=== PATIENT | male | born 1995 | race Caucasian/White ===

== ENCOUNTER 2021-05-05 10:36 | Emergency (ER) | payer OTHER, SELFPAY ==
--- NOTE | ~2021-05-05 | XR_ITS ---
EXAMINATION: XR chest 2V DATE: 05/05/2021 11:41 INDICATION: One week of cough TECHNIQUE: PA and lateral views of the chest were obtained. COMPARISON: None FINDINGS: The lungs are clear with no focal airspace opacities, pulmonary edema, pleural effusion or pneumothor ax. The cardiomediastinal silhouette is normal. Visualized bones and soft tissues are unremarkable. IMPRESSION: 1. Normal chest radiograph. Reviewed, dictated and finalized at location A. [employer] IMPRESSION: 1. Normal chest radiograph.
[2021-05-05 10:50] VITALS: BP 140/86; PULSE 83; RESP 18; TEMP 36.7; O2SAT 100
--- NOTE | 2021-05-05 11:30 | ED.GENADULT ---
HPI - General Adult General Chief complaint: Upper Respiratory Infection Stated complaint: cough Source: patient Mode of arrival: ambulatory Limitations: no limitations History of Present Illness HPI narrative: Patient presents for evaluation of respiratory symptoms for the last 6 days. He initially had a sore throat and fever. Fever has resolved, although sore throat has persisted. Reports sinus congestion, productive cough of yellow sputum, bilateral ear pain. Denies any nausea, vomiting, diarrhea, body aches. He has been taking Sudafed and DayQuil which seemed to help for about 4 hours. He is recurrence of his symptoms as the medication wears off. No recent sick contacts to his knowledge. He did have COVID in December 2019. He has received both doses of COVID vaccination as well as his booster. He does not smoke. No additional complaints or concerns. Related Data Home Medications Medication Instructions Recorded Confirmed No Home Medications 05/05/21 05/05/21 Allergies Allergy/AdvReac Type Severity Reaction Status Date / Time No Known Allergies Allergy Unverified 10/18/11 17:48 Review of Systems Review of Systems: CONSTITUTIONAL: Reports recent fever, none currently. Denies chills, or sweats. EYES: Denies visual changes, redness, or discharge. ENT: Reports nasal congestion, sore throat and bilateral otalgia CARDIOVASCULAR: Denies chest pain, palpitations, or edema. RESPIRATORY: Reports productive cough. Denies SOB GASTROINTESTINAL: Denies abdominal pain, nausea, vomiting, or diarrhea. GENITOURINARY: Denies dysuria or hematuria. SKIN: Denies rash or itching. MUSCULOSKELETAL: Denies back pain, joint pain, or myalgia. NEUROLOGIC: Denies headache, numbness, dizziness, or weakness. PSYCHIATRIC: Denies anxiety or depression. [facility] Past Medical History Medical History (Updated 05/05/21 @ 12:02 by Hector Stephen, SAMRA, COLLETTE) No pertinent past medical history Surgical History Surgical History No pertinent past surgical history Family History Family History Father Family history non-contributory Social History Social History Smoking status: Never smoker Alcohol intake: current Alcohol use details: rarely Substance use: never Additional living arrangements comments: Lives with fiance Gender identity (if verbalized by the patient): Male Sexual Orientation (if Verbalized by the Patient): Straight or Heterosexual Spiritual care concerns: No Exam Narrative: GENERAL: Well-appearing, well-nourished, and in no acute distress. HEAD: Normocephalic, atraumatic. EYES: PERRLA and EOMI. ENT: Nares clear, no rhinorrhea or epistaxis. Mucous membranes moist. Oropharynx without tonsillar hypertrophy exudate or other lesions. Bilateral TMs erythematous without evidence of perforation NECK: Supple. No adenopathy or masses. No carotid bruits or JVD CHEST: Clear to auscultation. No respiratory distress. No wheezes rales or rhonchi HEART: Regular rate and rhythm. No murmur heard. Normal peripheral pulses. ABDOMEN: Soft, nontender, nondistended, normal active bowel sounds. EXTREMITIES: Normal range of motion. No edema. SKIN: Warm, dry, no rash. NEURO: No focal deficits. Alert and oriented x3. PSYCH: Normal mood and affect. Course Course Emergency Course: This is a 25-year-old male that presented with complaints of sore throat and respiratory symptoms. Strep, Covid, influenza, chest x-ray were all negative. Exam is consistent with acute viral syndrome. Advised close outpatient follow-up and return for worsening symptoms. Patient in agreement with plan of care. Level of Care: Express Care Visit Vital Signs Vital signs: Vital Signs Temperature 36.7 C 05/05/21 10:50 Pulse Rate 83 05/05/21 10:50 Respiratory
== END 2021-05-05 12:04 | disposition home or self-care (01) ==
PROVIDERS: Emergency Provider Nurse Practitioner; PCP Internal Medicine
DX: J06.9 Acute upper respiratory infection, unspecified (principal); Z20.822 Contact with and (suspected) exposure to COVID-19
CPT/HCPCS: 71046; 87081; 87426; 87804; 87880; 99213; C9803; G0463